=== PATIENT | male | born 1985 | race Two or more races ===

== ENCOUNTER 2020-01-26 05:09 | Emergency (ER) | payer BC ==
[~2020-01-26] VITALS: Ht 172.7 cm; Wt 71.0 kg
[2020-01-26 07:39] LABS: CLARITY URINE CLEAR (CLEAR); COLOR URINE YELLOW (YELLOW); KETONES URINE TRACE (NEGATIVE); LEUKOCYTE ESTERASE URINE NEGATIVE (NEGATIVE); NITRITE URINE NEGATIVE (NEGATIVE); OCCULT BLOOD URINE NEGATIVE (NEGATIVE); PROTEIN URINE NEGATIVE (NEGATIVE); UROBILINOGEN URINE 0.2 E.U./dL (0.2-1.0)
[2020-01-26 07:42] LABS: CHLORIDE 110 mEq/L (98-107)
[2020-01-26 07:52] LABS: CREATINE KINASE 101 IU/L (39-308)
[2020-01-26 08:30] VITALS: BP 113/67
[2020-01-26] MEDS ORDERED: CEFTRIAXONE SODIUM 250 MG/VIAL IM ONE (08:45)
[2020-01-26] MEDS ORDERED: AZITHROMYCIN 500 MG TABLET PO ONE (08:45)
== END 2020-01-26 09:00 | disposition home or self-care (01) ==
LOC: ER 05:09
DX: N34.2 Other urethritis (principal); F12.10 Cannabis abuse, uncomplicated; Z98.890 Other specified postprocedural states; I49.9 Cardiac arrhythmia, unspecified
CPT/HCPCS: 36415; 80048; 81003; 82550; 93005; 99284

== ENCOUNTER 2020-02-06 10:03 | Emergency (ER) | payer BC ==
[~2020-02-06] VITALS: Ht 172.7 cm; Wt 70.0 kg
[2020-02-06 10:05] VITALS: BP 120/75
[2020-02-06 11:13] LABS: CLARITY URINE CLEAR (CLEAR); COLOR URINE YELLOW (YELLOW); KETONES URINE NEGATIVE (NEGATIVE); LEUKOCYTE ESTERASE URINE NEGATIVE (NEGATIVE); NITRITE URINE NEGATIVE (NEGATIVE); OCCULT BLOOD URINE TRACE (NEGATIVE); PROTEIN URINE NEGATIVE (NEGATIVE); SPECIFIC GRAVITY URINE 1.018 (1.005-1.030); UROBILINOGEN URINE 0.2 E.U./dL (0.2-1.0)
== END 2020-02-06 12:33 | disposition home or self-care (01) ==
LOC: ER 10:03
DX: R31.0 Gross hematuria (principal); R03.0 Elevated blood-pressure reading, without diagnosis of hypertension
CPT/HCPCS: 81003; 99283